=== PATIENT | male | born 1950 | race Caucasian/White ===

== ENCOUNTER 2018-01-06 02:07 | Inpatient (IN) | payer OTHER ==
--- NOTE | 2018-01-04 16:44 | History & Physical Pre-Op ---
General Information and [facility] MD Statement: I have seen and personally examined CHAPARRO LOPEZ and documented this H&P. The patient is a 67 year old M who presented with a patient stated chief complaint of right arm pain with associated numbness/tingling and tricep weakness. Source of Information: patient Exam Limitations: no limitations History of Present Illness: Chaparro is a 67-year-old gentleman who is complaining of a 2-3 month history of progressively worsening right arm pain that radiates to his right rhomboid muscle and into his elbow and forearm with associated numbness in his right pointer finger. He does admit to weakness in his right hand and right tricep with associated atrophy. Chaparro states that he presented with swelling in his hands bilaterally, 3 years ago which was attributed to arthritis. He also presented with a sore wrist on the right side and was given a cortisone injection by Dr. Villa without any significant symptom relief. He has also tried physical therapy and anti-inflammatory medications with minimal symptom relief. He denies any significant neck pain nor any left sided symptoms. He does admit to occasional dizziness but no severe headaches. Chaparro rates his pain as an 8/ 10 in intensity. He denies any known injury or precipitating event. He states his symptoms are improved when he raises his right arm up over his head. Chaparro 's MRI shows a large degenerative disc protrusion in the canal with cord compression at C5-6 and a brighter signal intensity herniation at C6-7 with retropulsion behind the body of C6. Due to the fact that Chaparro has progressively worsening motor loss in his right tricep and with his failure to respond to conservative measures, he wants nothing more to do with nonsurgical treatment. He has been consented for an urgent anterior cervical decompression fusion C5-C7 on January 06, 2018. 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 FATHER, , Age 86; Cause: Multiple organ failure. BROTHER, , Age 64; Cause: Gastric ulcer. BROTHER (s/p nephrectomy as a child). SISTER (Alive and well). Psychosocial History Where Do You Live? Home Who Do You Live With? 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 Medication List Current Psychiatric Med(s): Tramadol 37.5/325 1-2 tabs/day Diclofenac stopped 01/01/18 Vit C. 1000mg daily Turmeric daily-stopped 01/02/18 Fish oil daily stopped 01/02/18 Calcium 500mg BID Vit D. 1000IU daily Exam & Diagnostic Data Last 24 Hrs of Vital Signs/I&O Weight: 180lbs. Height: 6' Physical Exam General Appearance Alert, Oriented X3, Cooperative, No Acute Distress Skin No Rashes, No Breakdown, No Significant Lesion HEENT Atraumatic, PERRLA, EOMI, Mucous Membr. moist/pink Neck Supple, No JVD, No thryomegaly, +2 Carotid Pulse wo Bruit Lymphatic Cervical nl Cardiovascular Regular Rate, Normal S1, Normal S2, No Murmurs Lungs Clear to Auscultation Abdomen Normal Bowel Sounds, Soft, No Tenderness Neurological Normal Gait, Normal Speech, Severe atrophy and +2/5 weakness in the right tricep., Absent right tricep reflex, +2 right bicep, brachioradialis and left brachioradialis, bicep and tricep tenson reflexes, +spurlings to the right Extremities No Clubbing, No Cyanosis, No Edema, Normal Pulses Vascular Normal Pulses Assessment/Plan Assessment/Plan: Assessment: Degenerative disc protrusion at C5-6 and disc herniation with retropulsion at C6-7 with cord compression. Plan: Chaparro is scheduled for an anterior cervical decompression and fusion C5 -C7 with instrumentation and iliac crest bone grafting on January 06, 2018. We discussed the procedure in full detail as well as the pre-and postoperative course, follow-up care, and anticipated recovery. We also discussed the do's and don'ts and postoperative discharge instructions. We discussed the benefits, alternatives, and risks, not to exclude, , paralysis, infection, bleeding, continued pain, failure of the surgery, need for future surgery, DVT, vascular injury, CSF leak, hoarseness, dysphagia, etc., and given these risks, he still wishes to proceed. He has been cleared by his primary care physician. Any changes in this patient's plan is based on this patient's outpatient clinical presentation. As Ranked By This Provider Problem List: 1. Degenerative joint disease Copies To: Viktor CORREA,Gabe Attending MD Review Statement Attending Statement Attending MD Statement: examined this patient, discuss w/resident/PA/HEADING MACHINE OPERATOR, agreed w/resident/PA/HEADING MACHINE OPERATOR, reviewed images
[~2018-01-06] VITALS: Ht 182.9 cm; Wt 65.3 kg
[~2018-01-06 02:07] MED LIST: ULTRAM50 M1
[2018-01-06] MEDS ORDERED: ALEVE220 M1 (11:57)
--- NOTE | 2018-01-06 14:39 | Operative Report ---
Operative/Inv Procedure Report Surgery Date: 01/06/18 Name of Procedure: Anterior cervical discectomy C5 6 and C6 7. Interbody fusion with autologous iliac crest and interdiscal cage placement C5 6 and C6 7 interior plate fixation C5 6 and 7. Harvesting of morselized anterior iliac crest left graft instruction crest site with Master graft. Use of fluoroscopy. Neuro lysis right C7 nerve root. Pre-Operative Diagnosis: HNP C5 6 C6 7 Post-Operative Diagnosis: Same, osteoporosis. Estimated Blood Loss: scant Surgeon/Kidney Puller: Viktor CORREA,Odilia Bernal Anesthesia: general endotracheal tube Operative/Procedure Note Note: After adequate general anesthesia was achieved the patient was placed in the supine position with the head turned to the left and the shoulders taped to the side. The right side of the neck and left anterior iliac crest were sterilely prepped and draped. An incision was made in the neck in line with the skin crease and carried through the platysma sharply. A blunt gentle dissection was carried medial to the neurovascular bundle lateral to the visceral structures. Esophagus was identified. A bent needle was placed about the surgical field to avoid problems with his shoulder during x-ray. Fluoroscopy was used to identify surgical level. Deep retractors were gently placed up enterotomies were created in C5 6 and C6 7 and the curettes and disc rongeurs were used to perform the discectomy the lamina irrigating pump operator was used to gain access to the posterior aspect of the disc space at both levels. A very large herniation was identified in the right side at C6 7 which was relatively soft and moist suggesting a recent herniation. The dissection of the posterior vertebral body of the right posterior area of C6 was performed with the curettes and Kerrisons. The retropulsed disc fragment was easily removed from behind the body after the vertebrectomy at C6 7. Degenerative disc digesting a chronic condition was debrided at C5 6. The endplates were debrided with the high-speed bur to subchondral bleeding bone. An incision was made over the left anterior iliac crest a subperiosteal dissection was carried medial and lateral to the crest. Yesterday saw was used to collect 2 morselized bone graft of cancellus bone. The wound was irrigated the graft site was packed with Master graft. Gelfoam was laid over the Master graft and a closure was performed with absorbable suture with liliya in the skin. The trials were used to cage was placed in C5 6 and an 8 mm cage was found to be appropriate and C6 7 the cages were packed with morselized autologous bone graft and tamped into position. The cages were checked and well away from the neural canal. An anterior plate was then applied with reasonable purchase and all 6 screws from C5 to C7. After AP and lateral x -ray the screws were locked. The wound was irrigated. During harvesting of the bone graft obvious osteoporosis was identified. Wound was again irrigated and a stasis a bit achieved and the platysma was closed with absorbable suture the skin was closed with subcuticular nylon. After placement sterile dressings the patient was placed a cervical collar and taken to the recovery room on a stretcher.
--- NOTE | 2018-01-06 15:16 | Patient Discharge Instructions ---
Acute Coronary Syndrome Inclusion Criteria At DC or during hospital stay patient has or had the following: ACS DIAGNOSIS No Discharge Core Measures Meds if any: Prescribed or Continued at Discharge Meds if any: NOT Prescribed or Continued at Discharge Congestive Heart Failure Inclusion Criteria At DC or during hospital stay patient has or had the following: CHF DIAGNOSIS No Discharge Core Measures Meds if any: Prescribed or Continued at Discharge Meds if any: NOT Prescribed or Continued at Discharge Cerebrovascular accident Inclusion Criteria At DC or during hospital stay patient has or had the following: CVA/TIA Diagnosis No Discharge Core Measures Meds if any: Prescribed or Continued at Discharge Meds if any: NOT Prescribed or Continued at Discharge Venous thromboembolism Inclusion Criteria VTE Diagnosis No VTE Type NONE VTE Confirmed by (Test) NONE Discharge Core Measures - Per Current guidelines, there needs to be overlap - treatment for the first 5 days of Warfarin therapy. - If discharged on Warfarin prior to 5 days of - overlap therapy, the patient will need to be - assessed for post discharge needs including - *Post discharge parental anticoagulation - *Warfarin and/or parental anticoagulation education - *Follow up date to check INR post discharge At least 5 days overlap therapy as Inpatient No Meds if any: Prescribed or Continued at Discharge Note: Overlap Therapy is Warfarin and Anticoagulant Meds if any: NOT Prescribed or Continued at Discharge
[2018-01-06] MEDS ORDERED: MILK OF MA400 MG/52 PO (15:21)
[2018-01-06] MEDS ORDERED: TYLENOL EXTRA500 M2 PO (15:21)
[2018-01-06] MEDS ORDERED: MULTIVITAMINS1 EAC9 PO (15:21)
[2018-01-06] MEDS ORDERED: OS-CAL 500+D31 EAC1 PO (15:21)
[2018-01-06] MEDS ORDERED: COLACE100 M1 PO (15:21)
[2018-01-06] MEDS ORDERED: DULCOLAX10 M1 RC (15:21)
[2018-01-06] MEDS ORDERED: VITAMIN D31000 UNI2 PO (15:21)
[2018-01-06] MEDS ORDERED: PERCOCET 5-3251 EACH PO (15:21)
[2018-01-06 17:00] VITALS: BP 140/68
--- NOTE | 2018-01-06 17:04 | PN- Neurosurgical ---
Subjective Subjective: Postoperative check: Patient comfortable, complains of pain in the anterior right side of his neck and right trapezius region. No complaints of weakness or numbness in the extremities. Mild hoarseness of his voice, no difficulty swallowing. Objective Vital Signs and I&Os Intake & Output 01/06 1600 01/06 0800 01/06 0000 01/05 1600 01/05 0800 01/05 0000 Intake Total Output Total Balance Patient 187 lb Weight Vital signs stable, afebrile in recovery room Physical Exam: Well-developed well-nourished no apparent distress. HEENT: Atraumatic, extraocular motion intact Neck: Supple, soft cervical collar in place. Mild swelling noted right side anterior neck. Dressing clean dry and intact. Trachea midline Respiratory: No respiratory distress Extremities: No edema, no calf pain Neuro: Alert and oriented x3 bilateral upper extremities and lower extremities are neurovascularly intact with sensation and motor grossly intact. Psych: Mood affect normal, normal memory normal judgment. Skin: Warm and dry, no rash on exposed skin Assessment/Plan Assessment/Plan Postop day #0 status post anterior cervical discectomy C5 6 and C6 7 with interbody fusion Perioperative antibiotics. Pain medication as needed. Out of bed IV fluids until tolerating adequate p.o. Regular diet Incentive spirometry ALPS for DVT prophylaxis Regular home meds Dressing change postop day 2 Soft cervical collar Core Measures Venous Thromboembolism VTE Risk Factors Age>40 No Mechanical VTE Prophylaxis d/t N/A MechProphylax Ordered No VTE Pharm Prophylaxis d/t Other (surgeon preference)
--- NOTE | 2018-01-06 17:06 | Surg Short-stay <48hrs Dis Sum ---
Visit Information Visit Dates Admission Date: 01/06/18 Discharge Date: 01/07/18 Surgical Short Stay DC Summary Admission Diagnosis: HNP, cervical spine stenosis Final Diagnosis: Same plus status post anterior cervical discectomy and fusion C5-6 and C6-7 Procedure(s): See above Summary/Significant Findings: The patient is a 67 year old M who presented with a patient stated chief complaint of right arm pain with associated numbness/tingling and tricep weakness. On MRI was found to have spine stenosis herniated disc C5-6 C6-7 and required instrumental fusion and discectomy. He underwent the procedure without complications. His diet was advanced as tolerated. Postoperatively, pain was controlled, neurovascular was intact and vital signs were stable. During his hospital course, he developed allergic dermatitis likely secondary to Percocet and recieved Benadryl with improvement. He was instructed to call 911/return to the hospital if he develops worsening rash or signs of anaphylaxsis. Condition at Discharge: good Discharge Disposition: home or self care Discharge instructions provided to patient/family: Yes Post discharge follow-up plan: Follow-up with Dr. Viktor hong to remain in place Pain medication as needed Avoid bending lifting twisting
--- NOTE | 2018-01-06 17:42 | RADIOLOGY REPORT ---
EXAMINATION: C-ARM FLUOROSCOPY ASSISTANCE CLINICAL INFORMATION: C5-C7 anterior cervical discectomy with fusion. COMPARISON: None. TECHNIQUE: C-arm fluoroscopy assistance is provided at the time of the procedure. Total fluoroscopy time was 0.6 minutes. FINDINGS: 4 spot radiographs were obtained at the time of the procedure. The initial spot radiograph obtained in the lateral projection shows a radiopaque marker projecting at the level of C4-C5 disc space. Subsequent two lateral radiographs and single frontal radiograph show postoperative changes of anterior cervical spine fusion with intact hardware extending between C5 through C7. IMPRESSION: C-arm fluoroscopy assistance is provided at the time of lower cervical spine fusion, as described above. Full procedural detail will be dictated by Dr. Hoang, the performing surgeon.
[2018-01-06 22:10] VITALS: BP 135/69
[2018-01-07 06:39] VITALS: BP 126/73
--- NOTE | 2018-01-07 07:59 | PN- Orthopedic ---
Geovanny BLAIR,Odilia 01/07/18 0751: Subjective Subjective: Patient c/o expected postop incisional pain. + mild dysphagia. + sorethroat. No preop right arm pain. Improved right arm strength. No fever/chills. Wesley. po. + Voiding. Ambulating without difficulty. Review of Systems: Remarkable for the above complaints. Objective Vital Signs and I&Os Vital Signs Date Time Temp Pulse Resp B/P B/P Pulse O2 O2 Flow FiO2 Mean Ox Delivery Rate 01/07 0639 99.0 54 20 126/73 98 Room Air 01/06 2210 98.6 85 20 135/69 95 Room Air 01/06 1956 Room Air 01/06 1700 98.6 56 18 140/68 98 Room Air Intake & Output 01/07 0801/07 0000 01/06 1600 01/06 0801/06 0000 01/05 1600 Intake Total 800 Output Total 750 725 Balance -750 75 Intake, IV 500 Intake, Oral 300 Number 0 Bowel Movements Output, Urine 750 725 Patient 144 lb 187 lb Weight Weight Reported by Patient Measurement Method Physical Exam General Appearance: well developed/nourished, no apparent distress, alert, awake , comfortable Head: atraumatic, normal appearance Neck: Incision C/D/I. Dressings changed. Respiratory: normal breath sounds, no respiratory distress Cardiovascular: regular rate/rhythm Abdomen: normal bowel sounds, soft, non-tender Back: graft site incision C/D/I. Dressing changed. Extremities: normal inspection, normal capillary refill, normal range of motion, +3 right tricep strength. Neuro stable with no new or worsesning gross motor or sensory loss. Neurologic/Psychiatric: awake, alert, oriented x 3, normal gait Skin: intact, normal color, warm/dry Current Medications: Current Medications Sig/Ashanti Start time Last Medication Dose Route Stop Time Status Admin Acetaminophen 650 MG Q4P PRN 01/06 1515 AC 01/06 PO 2122 Bisacodyl 10 MG DAILY NEEDED PRN 01/06 1515 AC [place] Calcium 600 MG BID 01/06 2100 AC PO Calcium Carbonate 500 MG .STK-MED ONE 01/06 2118 DC PO 01/06 2119 Cefazolin Sodium 1,000 MG IQ8 01/06 1600 AC 01/07 IV 01/07 0801 0038 Cefazolin Sodium 2,000 MG ONCE 01/06 0000 DC IV 01/06 2359 Cholecalciferol 1,000 IU DAILY 01/07 0900 AC PO Docusate Sodium 100 MG BID 01/06 2100 AC 01/06 PO 2120 Fentanyl Citrate 100 MCG .STK-MED ONE 01/06 1024 DC IM 01/06 1025 Hydromorphone HCl 2 MG .STK-MED ONE 01/06 1553 DC IM 01/06 1554 Hydromorphone HCl 2 MG .STK-MED ONE 01/06 1023 DC IM 01/06 1024 Lactated Ringer's 1,000 ML Q10H 01/06 1515 AC 01/07 IV 0053 Magnesium Hydroxide 30 ML Q8P PRN 01/06 1515 AC PO Midazolam HCl 2 MG .STK-MED ONE 01/06 1024 DC IM 01/06 1025 Morphine Sulfate 1 MG Q3P PRN 01/06 1515 AC IV Multivitamins 1 TAB DAILY 01/07 0900 AC PO Ondansetron HCl 4 MG Q6P PRN 01/06 1515 AC IV Oxycodone/ 1 TAB Q4P PRN 01/06 1515 AC Acetaminophen PO Oxycodone/ 2 TAB Q4P PRN 01/06 1515 AC 01/06 Acetaminophen PO 2233 Trimethobenzamide HCl 200 MG Q6P PRN 01/06 1515 AC IM Assessment/Plan Assessment/Plan Assessment: S/p ACDF C5-7 Plan: Ambulate with PT Do's and Don'ts explained. Disch. Instr. given Continue with Percocet prn pain D/C to hotel Will F/U as outpatient D/C IVF Problem List: 1. Degenerative joint disease Core Measures Venous Thromboembolism VTE Risk Factors Age>40 No Mechanical VTE Prophylaxis d/t Early Ambulation No VTE Pharm Prophylaxis d/t Other (surgeon preference) Attending MD Review Statement Attending Statement Attending MD Statement: discuss w/resident/PA/COMMISSIONING SPECIALIST, agreed w/resident/PA/COMMISSIONING SPECIALIST Jorge Yu 01/07/18 1316: Assessment/Plan Assessment/Plan Surgery contacted at 13:00 regarding a rash, involving patients arm an legs. Patient states he did not have a rash earlier this morning and just noticed the rash which he describes as red and burning. He denies puritis, throat swelling, difficulty breathing. Reports similar experience after a cortisone injection in the past, which resolved over a couple of days. Per op note, patient did not have a cortisone injection. He states the only new medication he's had is Percocet. On exam, he has erythema in the distribution of his anterior forearms extending to his biceps and pelvic region extending to his medial thighs. Hives likely due to Percocet. Oral benadryl ordered. Percocet discontinued and Ultram Rx provided. Patient was instructed to return to the hospital if rash worsens or he develops any respiratory symptoms, including wheezing, sob, difficulty breathing or signs of anaphylaxsis and stated his understanding.
[2018-01-07] MEDS ORDERED: ULTRAM50 M1 PO ×3 (13:11→13:34)
== END 2018-01-07 13:28 | DRG 455 ==
LOC: SDA 02:07 → ENRESERV 15:19 → ENTRNSPT 16:10 → EDTRNSPTSTS 16:48 → EDTRNSPT 16:48 → 2NB 16:58 → CMPTRNSPT 17:15 → ENPENDDIS 01-07 08:13 → ENTRNSPT 01-07 13:02 → CMPTRNSPT 01-07 13:22 → 2NB 01-07 13:28
PROC: 07DR3ZZ Extraction of Iliac Bone Marrow, Percutaneous Approach (ICD-10-PCS; principal; 2018-01-06)
PROC: 0RB30ZZ Excision of Cervical Vertebral Disc, Open Approach (ICD-10-PCS; principal; 2018-01-06)
PROC: 0RG20A0 Fusion of 2 or more Cervical Vertebral Joints with Interbody Fusion Device, Anterior Approach, Anterior Column, Open Approach (ICD-10-PCS; principal; 2018-01-06)
PROC: 0RG2071 Fusion of 2 or more Cervical Vertebral Joints with Autologous Tissue Substitute, Posterior Approach, Posterior Column, Open Approach (ICD-10-PCS; principal; 2018-01-06)
DX: M50.223 Other cervical disc displacement at C6-C7 level (principal)
CPT/HCPCS: 2NSBP; 36415; 76000; 97116-GO; 97161-GP; C1713; J0690; J2405; J3250; J3490; J7120